=== PATIENT | female | born 1970 | race Asian ===

== ENCOUNTER 2018-06-12 15:59 | Emergency (ER) | payer MEDICAID ==
[~2018-06-12] VITALS: Ht 157.5 cm; Wt 62.1 kg
[2018-06-12 16:04] VITALS: BP 124/74
[2018-06-12] MEDS ORDERED: albuterol 2.5 MG/3 ML nebule NEB ONE (17:00)
[2018-06-12] MEDS ORDERED: GUAI-647 PO (17:21)
[2018-06-12] MEDS ORDERED: AZIT250T2 PO (17:21)
--- NOTE | 2018-06-12 17:29 | NUR ---
PAGED RT [id number]
== END 2018-06-12 17:51 | disposition home or self-care (01) ==
LOC: ER 16:00
DX: J40 Bronchitis, not specified as acute or chronic (principal); Z79.2 Long term (current) use of antibiotics; Z79.899 Other long term (current) drug therapy
CPT/HCPCS: 71046; 94640; 94760; 99283